=== PATIENT | male | born 2000 ===

== ENCOUNTER 2023-12-18 10:38 | Emergency (ER) | payer SELFPAY ==
[2023-12-18 10:48] VITALS: BP 134/78; PULSE 87; RESP 20; O2SAT 100
--- NOTE | 2023-12-18 11:02 | W.ED.GENAD ---
HPI General Date/Time Provider Initiated Documentation: 12/18/23 11:02. Limitations to Documentation: no limitations. Information obtained by: patient, family, educational sign language interpreter and RN notes reviewed. History of Present Illness 23 year old M presents to the emergency department with the chief complaint of kicked by cow in the nose, described as moderate, Quality is described as aching, and is localized to the face. Patient reports no radiation. Patient started experiencing this minute(s) and it has been constant. No relieving factors improve symptom(s), No exacerbating factors reported . Patient notes no other symptoms.; denies confusion, chest pain, fever/chills, headaches, malaise, nausea/vomiting, shortness of breath and syncope. Patient did receive the following treatments prior to arrival, none Related Data Home Medications Medication Instructions Recorded Confirmed Unknown [No Known Home Meds] 12/18/23 12/18/23 Allergies Allergy/AdvReac Type Severity Reaction Status Date / Time No Known Allergies Allergy Unverified 12/18/23 10:53 General Stated Complaint: HeadInjury MARILYNN: 3 Review of Systems Constitutional Constitutional: Reports as per HPI, Denies headache(s) and Denies malaise Eyes Eyes: Reports as per HPI, Denies blurry vision, Denies change in vision and Denies loss of vision ENT Ears, Nose, Mouth, and Throat: Denies vertigo, Denies dizziness and Denies headache(s) Musculoskeletal Musculoskeletal: Reports as per HPI Integumentary/Breasts Skin/Breast: Reports as per HPI Neurologic Neurologic: Reports as per HPI, Denies vertigo, Denies dizziness, Denies headache(s) and Denies loss of vision Exam Const General: cooperative, healthy appearing, comfortable, no acute distress and well developed Nutritional Appearance: average body habitus and well nourished Orientation: alert and awake [facility] Head: normal to inspection, no palpable skull fracture, normocephalic and atraumatic Ears: hearing grossly normal bilaterally, external ears normal and TM's normal bilaterally General nose exam: external nose not normal (swelling at bridge of nose, slight abrasion ), no nasal polyps, septum normal, no nasal discharge, no epistaxis (dry blood in right nares, resolved) and mucous membranes and turbinates abnormal erythematous bilaterally Face and sinus: sinuses nontender, face symmetric and tenderness (nose, none in the face, oribits, teeth, mouth) Mouth: oral mucosae normal, lip normal, tongue normal, no trismus and No restricted motion Throat: posterior oropharynx normal, tonsils normal and uvula midline Eyes General: appearance normal, both eyes and all related structures Visual Schmitz: normal visual schmitz by confrontation Periorbital: periorbital findings normal Eyelids: eyelids normal Conjunctivae: conjunctivae normal Sclera: sclerae normal Cornea: corneas normal Pupils: PERRL, normal by confrontation and accommodation normal EOM: EOM intact bilaterally Neck Neck: normal visual inspection and full ROM Resp Effort & Inspection: normal respiratory effort, able to speak in complete sentences and no respiratory distress Cardio Rate: regular rate Rhythm: regular rhythm Skin Trauma: abrasion (small <1cm abrasion to nose) Neuro General: patient alert and patient awake Cognition: normal cognition Speech: speech normal Gait: normal gait Sensory Exam: no sensory deficits noted Course Vital Signs Vital signs: Vital Signs Pulse 87 12/18/23 10:48 Respiratory Rate 20 12/18/23 10:48 Blood Pressure 134/78 12/18/23 10:48 Pulse Oximetry 100 12/18/23 10:48 Pulse 87 12/18/23 10:48 Respiratory Rate 20 12/18/23 10:48 Respiratory Effort Normal 12/18/23 10:54 Blood Pressure 134/78 12/18/23 10:48 Blood Pressure Position Sitting 12/18/23 10:48 Pulse Oximetry 100 12/18/23 10:48 Oxygen Delivery Method Room Air 12/18/23 10:48 Oxygen Flow Rate 0 12/18/23 10:48 Pain Level 8 12/18/23 10:48 Medical Decision Making Patient is a pleasant 23 year old male, brought in by friend, with c/c of being kicked in the nose by a cow. Patient speaks Sinhala, language line used throughout the entirety of the visit. States that about 1hr prior to arrival, he was at work when cow kicked back. He denies CHEN, no LOC. States that it just hit anastasiya bridge of his nose. Denies other injjury at the time of the incident. Denies any visual changes. No pain with movements of the eyes. He states that initially he had bloody nose and some tearing of his eyes. He feels that his jaw has good range of motion, no malocclusion. No difficulty swallowing. No difficulty breathing through his nose. On exam, patient appears nontoxic. He has a small abrasion and swelling at the bridge of his nose. Tetanus is up-to-date. Nasal mucosa is swollen laterally but no evidence of septal hematoma at this point. No continued epistaxis. None noted in the posterior oropharynx. Good range of motion of the jaw. No pain to palpation over the orbits. Extraocular movements are intact, no visual changes. No pain with palpation elsewhere about the head. No hemotympanums. No evidence of basilar skull fracture. No significant deformity is noted with palpation of the nose but the swelling and location does have any concern for nasal fracture. I do not note any evidence to suggest orbital fracture, no evidence of intracranial hemorrhage, do not see need for imaging at this time. Patient does need local primary care and will refer him to 1 as he does not yet have a PCP locally. Will have him follow-up in 1 to 2 weeks for reevaluation. He is breathing well through his nose, I do not see need for emergent intervention. I encouraged him to sit up more when sleeping. Encouraged that he abstain from blowing his nose, picking his nose, try to avoid sneezing. We discussed activities to avoid. Advised anti-inflammatories, OTC pain medication, ice. Return precautions were discussed. All of his questions and concerns were addressed and he is in agreement this plan. He has someone who can translate his discharge instructions. Quality:[facility] Health Related Social Needs: No Data to Display PFSH All Active Problems (Updated 12/18/23 @ 11:31 by UGO Pitt) Closed fracture nasal bone (Acute) Social History Smoking/Tobacco Use Status: Never Smoking risk assessment performed?: Yes Alcohol Intake: current Alcohol Intake frequency: holidays/special occasions only Drug use: Never Substance use type: does not use Discharge Plan Disposition Patient Disposition: Home Condition: Good Discharge Details Clinical Impression: Closed fracture nasal bone Primary Care Provider: Unknown,Unknown ED Provider: Cindi Gutierres Home Meds and New Rx's Prescriptions: No Action No Known Home Meds Discharge Instructions Instructions: Nasal Fracture (ED) Additional Instructions: Your exam is concerning for nasal fracture. At this time, I do not see any evidence that it involves the bone around your eyes, it is not making it difficult for you to breathe through your nose. All of the bleeding from your nose is stopped. Please use ibuprofen, 600 mg every 6 hours to help with swelling. Please continue with ice. Try to sit up more at night to help prevent the swelling from getting worse in the nose. I have also referred you to a local primary care and would like for you to follow-up in the next week for reevaluation of your nose. If you develop fever/chills, increased pain, inability to breathe through your nose or other new/worsening symptoms please seek care urgently once again. Discharge Data Discharge Date/Time-TO BE ENTERED AT DEPARTURE: 12/18/23 12:18
--- NOTE | 2023-12-18 11:30 | NUR.NOTE ---
Referral given to Care managers to help Establish a Primary Care Provider for care and to follow up to the ER visit.
[2023-12-18] MEDS: Acetaminophen 325 MG TAB 650 MG PO (11:38)
[2023-12-18] MEDS: Ibuprofen 600 MG TAB PO (11:38)
== END 2023-12-18 12:18 | disposition home or self-care (01) ==
PROVIDERS: Emergency Provider Physician Assistant
DX: S02.2XXA Fracture of nasal bones, initial encounter for closed fracture (principal); W55.22XA Struck by cow, initial encounter; Y93.K9 Activity, other involving animal care; Y92.79 Other farm location as the place of occurrence of the external cause; Y99.0 Civilian activity done for income or pay
CPT/HCPCS: 99283